=== PATIENT | female | born 2005 | race African-American/Black ===

== ENCOUNTER 2024-03-23 09:00 | Emergency (ER) | payer OTHER ==
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
[2024-03-23] MEDS: IBUPROFEN 600 MG TABLET PO STA (11:23)
[2024-03-23] MEDS: ACETAMINOPHEN 325 MG TABLET PO STA (11:24)
--- NOTE | 2024-03-23 11:46 | CT Report ---
PROCEDURE: Head WO INDICATIONS: head injury, concussive symtpoms, increasing OROPEZA TECHNIQUE: Noncontrast 4.5 mm thick angled axial sections acquired from the foramen magnum to the vertex. For r adiation dose reduction, the following was used: automated exposure control, adjustment of mA and/or kV according to patient size. COMPARISON: None. FINDINGS: Image quality: Excellent. CSF spaces: Basal cisterns are patent. No extra-axial fluid collections. Ventricles are normal in size and shape. Brain: No midline shift. No intracranial masses or hemorrhage. Conn-white matter interface is norm al. Skull and face: Calvarium and visualized facial bones are intact, without suspicious lesions. Sinuses: Visualized sinuses and mastoids are clear. IMPRESSION: No acute intracranial pathology. Reviewed by: Fred Deutsch MD on 03/23/2024 11:45 AM PDT Approved by: Fred Deutsch MD on 03/23/2024 11:45 AM PDT Station ID: [id number]
--- NOTE | 2024-03-23 11:50 | XRAY Report ---
PROCEDURE: Shoulder 2+V LT INDICATIONS: injury to left shoulder TECHNIQUE: 3 views of the shoulder were acquired. COMPARISON: None. FINDINGS: Bones: No fractures or dislocations. No suspicious bony lesions. Visualized ribs appear intact. Soft tissues: No suspicious soft tissue calcifications. The visualized lungs are within normal limi ts. IMPRESSION: No acute bony abnormality. Reviewed by: Ren Solis MD on 03/23/2024 11:49 AM PDT Approved by: Ren Solis MD on 03/23/2024 11:49 AM PDT Station ID: [id number]
--- NOTE | 2024-03-23 11:51 | XRAY Report ---
PROCEDURE: Hip w/Pelvis 2-3V LT INDICATIONS: injury left hip TECHNIQUE: 2 views of the hip were acquired. COMPARISON: None. FINDINGS: Bones: No fractures or dislocations. No evidence of avascular necrosis of femoral head. No suspiciou s bony lesions. Soft tissues: No suspicious soft tissue calcifications or masses. IMPRESSION: No acute left hip fracture or dislocation. No evidence of avascular necrosis. Reviewed by: Ren Solis MD on 03/23/2024 11:49 AM PDT Approved by: Ren Solis MD on 03/23/2024 11:49 AM PDT Station ID: [id number]
[2024-03-23 12:35] VITALS: BP 107/66
[2024-03-23 12:46] VITALS: O2SAT 99
== END 2024-03-23 12:37 | disposition home or self-care (01) ==
LOC: ED 09:00
DX: S00.03XA Contusion of scalp, initial encounter (principal); S40.012A Contusion of left shoulder, initial encounter; S70.02XA Contusion of left hip, initial encounter; S06.0XAA Concussion with loss of consciousness status unknown, initial encounter; Y04.2XXA Assault by strike against or bumped into by another person, initial encounter; Y92.009 Unspecified place in unspecified non-institutional (private) residence as the place of occurrence of the external cause
CPT/HCPCS: 70450; 73030; 73502; 99284; A9270